=== PATIENT | female | born 1965 | race Caucasian/White ===

== ENCOUNTER 2016-05-20 12:59 | Emergency (ER) | payer OTHER ==
[2016-05-20 13:41] VITALS: BP 142/81; PULSE 61; TEMP 98.1; BMI 24.4
--- NOTE | 2016-05-20 14:31 | PDOC ---
History of Present Illness - General Chief Complaint: Injury Stated Complaint: FALL/ LT WRIST PAIN, SWOLLEN Time Seen by Provider: 05/20/16 13:58 History Source: Patient Exam Limitations: No Limitations - History of Present Illness Initial Comments: 05/20/16 14:59 Chief complaint: Left wrist pain History of present illness: Patient is a 50-year-old female with no significant medical history here today complaining of left dorsal wrist pain since falling 3 days ago with her left hand stretched out behind her bracing her fall. Patient has slight swelling to distal dorsal wrist. Patient reports the pain is worse with movement. Denies any numbness of left hand or wrist or arm 05/20/16 15:07 Occurred: reports: other (3 days ago on 05/17/16) Severity: reports: moderate (left wrist ) Pain Location: reports: upper extremity (left wrist) Method of Injury: Yes: fall (with left hand stretched outward behind her) Modifying Factors: improves with: None Loss of Consciousness: no loss of consciousness Associated Symptoms (Fall): denies symptoms Past History - Past Medical History Allergies/Adverse Reactions: Allergies Allergy/AdvReac Type Severity Reaction Status Date / Time No Known Allergies Allergy Verified 05/20/16 13:35 Home Medications: Ambulatory Orders NK [No Known Home Medication] 05/20/16 Other medical history: DENIES. - Surgical History Appendectomy: Yes - Psycho/Social/Smoking Cessation Hx Suicidal Ideation: No Smoking History: Never smoked Review of Systems - Review of Systems Able to Perform ROS?: Yes Constitutional: No: Symptoms Reported HEENTM: No: Symptoms Reported Respiratory: No: Symptoms reported Cardiac (ROS): No: Symptoms Reported ABD/GI: No: Symptoms Reported Musculoskeletal: Yes: Joint Pain (left wrist pain ), Joint Swelling (left dorsal wrist) Integumentary: No: Symptoms Reported Neurological: No: Symptoms reported *Physical Exam - Vital Signs Last Vital Signs Temp Pulse Resp BP Pulse Ox 98.1 F 61 19 142/81 98 05/20/16 13:35 05/20/16 13:35 05/20/16 13:35 05/20/16 13:35 05/20/16 13:35 - Physical Exam General Appearance: Yes: Appropriately Dressed Comments:: 05/20/16 14:26 radial pulse left 4 + 05/20/16 14:31 Extremity: positive: Normal Capillary Refill, Swelling (left dorsal wrist), Other (left elbow, left shoulder full range of motion ). negative: Normal Inspection, Normal Range of Motion, Tender Integumentary: positive: Normal Color Neurologic: positive: Alert, Normal Response, Responsive. negative: Respond to painful stimul (left wrist decreased range of motion), Numbness, Sensory Deficit Procedures - Consent Consent obtained: From Patient - Splinting Splint Location: Left: Wrist, Forearm Pre-Proc Neuro Vasc Exam: normal Hand-Made Type: orthoglass Splint Type: Yes: Short Arm (left dorsal wrist pain ) Post-Proc Neuro Vasc Exam: normal Uzair Bandage: 3" Sling: No Complications: No Medical Decision Making - Medical Decision Making 05/20/16 15:07 05/20/16 15:08 Patient is a 50-year-old female with no significant medical history here today complaining of left dorsal wrist pain since falling 3 days ago with her left hand stretched out behind her bracing her fall. Patient has slight swelling to distal dorsal wrist. Patient reports the pain is worse with movement. Denies any numbness of left hand or wrist or arm Left wrist and distal forearm pain rule out fracture due to fall 3 days ago left wrist sprain Plan: X-ray left wrist and hand no fracture noted per Dr. Kim Will apply Ortho-Glass volar splint due to tenderness of dorsal aspect of left wrist would be too painful with wrist immobilizer follow up with ortho as soon as possible Ibuprofen 600 mg by mouth now 05/20/16 15:09 05/20/16 15:18 05/21/16 15:07 *DC/Admit/Observation/Transfer Diagnosis at time of Disposition: Sprain of wrist, left Qualifiers: Encounter type: initial encounter Qualified Code(s): S63.502A - Unspecified sprain of left wrist, initial encounter - Discharge Dispostion Disposition: HOME Condition at time of disposition: Stable - Referrals Referrals: Paty Lambert MD [Primary Care Provider] - David Camarena MD [Staff Physician] - - Patient Instructions Additional Instructions: Follow-up with orthopedist for further evaluation within the next few days Keep Ortho-Glass splint in place for comfort Take ibuprofen as needed as directed by credit consultant for pain Return to emergency room if any numbness of left hand or wrist or worsening pain Patient voiced understanding of discharge instructions and all questions were answered Seguimiento con ortopeda para brayan evaluacin posterior dentro de los prximos d as Mantenga la frula Ortho-Glass en elizondo lugar para mayor comodidad Pavillion ibuprofeno segn sea necesario segn las instrucciones del fabricante para el dolor Regreso a la юлия de emergencias si hay entumecimiento de la mano izquierda o mu eca o dolor que empeora Comprensin del paciente sobre las instrucciones de sera y todas las preguntas fueron contestadas
[2016-05-20] MEDS ORDERED: IBUPROFEN 600 MG TABLET (FP) PO ONE ×2 (15:06→15:16)
== END 2016-05-20 15:36 | disposition home or self-care (01) ==
LOC: JERFT 12:59
PROC: 2W39X1Z Immobilization of Left Upper Extremity using Splint (ICD-10-PCS; principal; 2016-05-20)
DX: S63.592A Other specified sprain of left wrist, initial encounter (principal); W19.XXXA Unspecified fall, initial encounter; Y92.89 Other specified places as the place of occurrence of the external cause
CPT/HCPCS: 73110-TC-LT; 73130-TC-LT; 99281-25